=== PATIENT | female | born 1975 | race African-American/Black ===

== ENCOUNTER 2017-03-07 04:34 | Emergency (ER) | payer OTHER ==
[~2017-03-07] VITALS: Ht 177.8 cm; Wt 106.6 kg
--- NOTE | ~2017-03-07 | CR211 ---
[facility] A Service of [facility] & [facility] RADIOLOGY TEXT RESULTS PATIENT: ARISTIDES HUYNH LOCATION: [facility] : 73 UNIT #: [id number] AGE: [address]: Deshaun Zaidi MD SEX: F ORDER DR: [id number] [facility] [address] [place] [address]. [place], [place] [address] [id number] E MR#: [id number] Acc #: [id number] NAME: ARISTIDES HUYNH : 1975 SEX: F STUDY DATE/TIME: 03/07/2017 8:41 UNIT: [facility] ROOM: STUDY DESCRIPTION: CR Ribs Uni 2 View W PA Ch Rt Attending Physician: Deshaun Zaidi M.D. Ordering Physician: Deshaun Zaidi M.D. Primary Care Physician: Elena Hernández R.N. MEDICAL IMAGING REPORT This report is preliminary unless electronic signature is present EXAM Chest x-ray PA with ribs right HISTORY Right lateral rib pain, right shoulder pain and right posterior elbow pain after falling at an ice cream parlor yesterday. COMMENT Frontal view of the chest and 3 views of the right ribs are reviewed. There is a comparison study from 01/27/2016 of the chest. The cardiac silhouette size is normal. There is no acute-appearing parenchymal infiltrate, acute congestive failure, pleural effusion or pneumothorax. There is no displaced right rib fracture. IMPRESSION 1. No active disease is seen in the chest. 2. No evidence for displaced right rib fracture. Dictated by... Oumou Garcia M.D. THIS IS AN ELECTRONICALLY VERIFIED REPORT Oumou Garcia M.D. at 03/08/2017 7:53 AM Renzo TD: 03/07/2017 17:04 JOB #: [id number] MEDICAL IMAGING REPORT Page 1 of 1 COPY
--- NOTE | ~2017-03-07 | CR94 ---
[facility]. [facility] A Service of [facility] & [facility] RADIOLOGY TEXT RESULTS PATIENT: ARISTIDES HUYNH LOCATION: [facility] : 73 UNIT #: [id number] AGE: [address]: Deshaun Zaidi MD SEX: F ORDER DR: [id number] [facility] [address] [place], [place] [address] [id number] E MR#: [id number] Acc #: [id number] NAME: ARISTIDES HUYNH : 1975 SEX: F STUDY DATE/TIME: 03/07/2017 8:48 UNIT: [facility] ROOM: STUDY DESCRIPTION: CR Elbow Min 3 Views Rt Attending Physician: Deshaun Zaidi M.D. Ordering Physician: Deshaun Zaidi M.D. Primary Care Physician: Elena Hernández R.N. MEDICAL IMAGING REPORT This report is preliminary unless electronic signature is present EXAM Elbow 3 views right HISTORY Right elbow pain after falling in an ice cream parlor yesterday. COMMENT Three views of the right elbow reviewed. No acute fracture, dislocation or radiopaque foreign body. No joint effusion seen. IMPRESSION Negative. Dictated by... Oumou Garcia M.D. THIS IS AN ELECTRONICALLY VERIFIED REPORT Oumou Garcia M.D. at 03/08/2017 7:53 AM Renzo TD: 03/07/2017 17:06 JOB #: [id number] MEDICAL IMAGING REPORT Page 1 of 1 COPY
--- NOTE | ~2017-03-07 | CR230 ---
[facility]. [facility] A Service of [facility] & [facility] RADIOLOGY TEXT RESULTS PATIENT: ARISTIDES HUYNH LOCATION: [facility] : 73 UNIT #: [id number] AGE: [address]: Deshaun Zaidi MD SEX: F ORDER DR: [id number] [facility] [address] [place], [place] [address] [id number] E MR#: [id number] Acc #: [id number] NAME: ARISTIDES HUYNH : 1975 SEX: F STUDY DATE/TIME: 03/07/2017 8:46 UNIT: [facility] ROOM: STUDY DESCRIPTION: CR Shoulder Min 2 View Rt Attending Physician: Deshaun Zaidi M.D. Ordering Physician: Deshaun Zaidi M.D. Primary Care Physician: Elena Hernández MEDICAL IMAGING REPORT This report is preliminary unless electronic signature is present EXAM Right shoulder 3 views HISTORY Right shoulder pain after falling in an ice cream parlor yesterday. COMMENT Three views right shoulder reviewed. No prior. There is no acute fracture, dislocation or radiopaque foreign body suspected. IMPRESSION Negative. Dictated by... Oumou Garcia M.D. THIS IS AN ELECTRONICALLY VERIFIED REPORT Oumou Garcia M.D. at 03/08/2017 7:53 AM RANDY/nikole TD: 03/07/2017 17:12 JOB #: [id number] MEDICAL IMAGING REPORT Page 1 of 1 COPY
== END 2017-03-07 09:53 | disposition home or self-care (01) ==
LOC: CED 04:34
DX: S50.01XA Contusion of right elbow, initial encounter (principal); I10 Essential (primary) hypertension; F17.200 Nicotine dependence, unspecified, uncomplicated; Z88.6 Allergy status to analgesic agent; Z88.2 Allergy status to sulfonamides; W01.0XXA Fall on same level from slipping, tripping and stumbling without subsequent striking against object, initial encounter
CPT/HCPCS: 71101; 73030; 73080; 96372; 99283; J1885